=== PATIENT | male | born 1995 | race Caucasian/White ===

== ENCOUNTER 2020-01-15 06:35 | Emergency (ER) | payer BC, MEDICAID ==
[2020-01-15] MEDS ORDERED: Zofran 4 MG/2 ML VIAL IV ONE (07:41)
[2020-01-15] MEDS ORDERED: MORPHINE SULFATE 4 MG INJ IV ONE (07:41)
[2020-01-15] MEDS ORDERED: TYLENOL 325 MG PO ONE (07:41)
--- NOTE | 2020-01-15 07:48 | XRAY ---
Indication: Head/facial injury with falling tree. Epistaxis. Multiple contiguous axial images obtained through the head without contrast. Comparison: None Normal appearing brain parenchyma, ventricles, and bony calvarium. Visualized paranasal sinuses and mastoid air cells are clear. CT facial bones reported separately. Impression: Normal CT head without contrast exam. Comment: Preliminary interpretation was made by [facility]. No critical discrepancy.
[2020-01-15] MEDS ORDERED: Zofran 4 MG/2 ML VIAL ONE (07:51)
[2020-01-15] MEDS ORDERED: MORPHINE SULFATE 4 MG INJ ONE (07:51)
[2020-01-15] MEDS ORDERED: TYLENOL 325 MG ONE (07:51)
--- NOTE | 2020-01-15 07:51 | ERPHSYRPT ---
- History of Present Illness Time Seen by Provider: 01/15/20 07:04 Source: patient Exam Limitations: no limitations Patient Subjective Stated Complaint: "I was hanging a tree stand with my dad when the top ladder fell and hit my face. It smoked me" Triage Nursing Assessment: Pt presented alert et oriented x3 answering questions appropriately. Pt reported that he and his dad were putting up a tree stand when the top ladder section fell and struck his face. Pt denied any loss of consciousness. Pt reported seeing spots at the initial injury without subsequent visual/auditory disturbances. Pt denied any chest pain or shortness of breath. Pt reported excessive bleeding from his not throughout the night. Pt denied any numbness/tingling throughout all extremities. Head atraumatic normocephalic. Pupils 3mm brisk bilateral reaction. TMs clear. Abrasion with deformity noted to the nasal bridge. Packing in place in bilateral nares. Oropharynx with pink/moist tissues without lesions. Laceration noted to left upper lift with chipped left upper incisor. Neck supple non-tender with trachea midline. Symmetrical chest expansion. Lungs clear with adequate airflow. S1 S2 regular rate and rhythm. Peripheral pulses +2 bilateral. Physician History: 24 years old male presented in the ER with chief complaint of nasal and left- sided head injury after a piece of tree stand ladder fell on him while his father was putting it together. It fell from almost 10 feet height. Had no loss of consciousness but reported seeing stars for a few minutes and improved. This happened last evening before dark. There was bleeding initially from the nose but gradually is slowed down and currently not bleeding. Patient report constant throbbing moderate to severe intensity pain in the nose and lateral side of the head. He also has a small hematoma in the right occipitoparietal area. Denies any ear bleeding. Denies any neck pain, numbness tingling or focal weakness. Denies any visual disturbance at present. No loss of cons ciousness. Patient report pain is aggravated with palpation of his nose and is associated with swelling and better with being still. No jaw injury. No injury anywhere else. Up-to-date with tetanus. Timing/Duration: this morning, yesterday Severity: moderate ENT Location: nose, facial Prearrival Treatment: no prearrival treatment Associated Symptoms: facial pain/swelling, headache, epistaxis Allergies/Adverse Reactions: Penicillins Allergy (Intermediate, Verified 01/15/20 06:40) Hives Home Medications: No Home Meds [No Home Meds] 0 06/23/12 [History] Hx Tetanus, Diphtheria Vaccination/Date Given: Yes (2014) Hx Influenza Vaccination/Date Given: Yes Hx Pneumococcal Vaccination/Date Given: No Travel Risk - International Travel Have you traveled outside of the country in past 3 weeks: No - Coronavirus Screening Are you exhibiting any of the following symptoms?: No Close contact with a COVID-19 positive Pt in past 14-21 Days: No - Review of Systems Constitutional: No Symptoms Eyes: No Symptoms Ears, Nose, & Throat: Nose Pain, Nose Congestion, Epistaxis Respiratory: No Symptoms Cardiac: No Symptoms Abdominal/Gastrointestinal: No Symptoms Genitourinary Symptoms: No Symptoms Musculoskeletal: No Symptoms Skin: Skin Lesions Neurological: Headache Psychological: No Symptoms Endocrine: No Symptoms Hematologic/Lymphatic: No Symptoms Immunological/Allergic: No Symptoms - Past Medical History Pertinent Past Medical History: No Neurological History: No Pertinent History ENT History: No Pertinent History Cardiac History: No Pertinent History Respiratory History: No Pertinent History Endocrine Medical History: No Pertinent History Musculoskeletal History: No Pertinent History GI Medical History: No Pertinent History History: No Pertinent History Psycho-Social History: Depression Male Reproductive Disorders: No Pertinent History - Past Surgical History Past Surgical History: No Neuro Surgical History: No Pertinent History Cardiac: No Pertinent History Respiratory: No Pertinent History Gastrointestinal: No Pertinent History Genitourinary: No Pertinent History Musculoskeletal: No Pertinent History Male Surgical History: No Pertinent History - Social History Smoking Status: Never smoker Exposure to second hand smoke: No Drug Use: none Patient Lives Alone: No - Nursing Vital Signs Nursing Vital Signs: Initial Vital Signs Temperature 98.9 F 01/15/20 06:37 Pulse Rate 109 H 01/15/20 06:37 Respiratory Rate 20 01/15/20 06:37 Blood Pressure 143/88 01/15/20 06:37 O2 Sat by Pulse Oximetry 97 01/15/20 06:37 Pain Scale Pain Intensity 10 - Physical Exam General Appearance: no apparent distress, alert, other (Mild swelling and schwab of impact on right parietal area. 2 x 2 cm swelling/hematoma right occipital area. No step deformity.) Eye Exam: bilateral eye: normal inspection, PERRL, EOMI Ear Exam: bilateral ear: auricle normal, canal normal, TM normal Nasal Exam: dried blood (Swelling at bridge of nose diffusely with superficial skin abrasion. Tenderness to palpation, mild deviation to the left. No obvious crepitus. Dried blood in the nares, no active ooze or spurting.), sinus tenderness Throat Exam: normal, pharynx normal Neck Exam: normal inspection, non-tender, supple, full range of motion Cardiovascular/Respiratory Exam: chest non-tender, normal breath sounds, regular rate/rhythm Abdominal Exam: non-tender, soft Neurologic Exam: alert, oriented x 3, cooperative, sustainability officer II-XII nml as tested, normal mood/affect, nml cerebellar function, nml station & gait, sensation nml, No motor deficits, No sensory deficit Skin Exam: normal color SpO2 Interpretation: normal SpO2: 97 O2 Delivery: Room Air - Course Nursing assessment & vital signs reviewed: Yes Ordered Tests: Active Orders 24 hr Category Date Time Status FACIAL BONES WO CONTRAST [CT] Stat Exams 01/15/20 06:44 Taken HEAD WITHOUT CONTRAST [CT] Stat Exams 01/15/20 06:44 Taken Medication Summary Discontinued Medications Generic Name Dose Route Start Last Admin Trade Name [place] PRValentín Reason Stop Dose Admin Acetaminophen 975 mg 01/15/20 07:41 Tylenol 325 Mg PO 01/15/20 07:42 STAT ONE Morphine Sulfate 4 mg 01/15/20 07:41 Morphine Sulfate 4 Mg Inj IV 01/15/20 07:42 STAT ONE Ondansetron HCl 4 mg 01/15/20 07:41 Zofran 4 Mg/2 Ml Vial IV 01/15/20 07:42 STAT ONE - Progress Progress: improved, pain not gone completely Progress Note: 01/15/20 07:53 24 years old is evaluated after a piece of letter fell on his nose and right side of the head last evening. Patient has nonfocal neuro exam. He has obvious swelling of the nose with some deformity towards the left. He is given morphine for symptomatic relief. No active epistaxis but has dried blood. I have obtained CT head and facial bone which did not show any acute intracranial findings but does have nasal bone fracture on the left with some deviation of septum. I would start him on clindamycin and will give ibuprofen for sym ptomatic relief. Recommended applying ice. I do not think patient needs emergent ENT consultation but needs outpatient follow-up with ENT. He is given referral for ENT in [place]. Discussed signs symptoms of worsening needing return to ER which patient seems understanding. Stable for discharge. Counseled pt/family regarding: diagnosis, need for follow-up, rad results - Departure Departure Disposition: Home Clinical Impression: Nasal bone fracture Qualifiers: Encounter type: initial encounter Fracture type: closed Qualified Code(s): S02.2XXA - Fracture of nasal bones, initial encounter for closed fracture Contusion of scalp Qualifiers: Encounter type: initial encounter Qualified Code(s): S00.03XA - Contusion of scalp, initial encounter Condition: Stable Critical Care Time: No Referrals: CRISTINA SEQUEIRA [Primary Care Provider] - Follow Up with PCP/3 days YOVANY SIU [NON-STAFF PHY W/O PRIVILEGES] - (Call Friday morning for appointment and evaluation of nasal fracture.) Instructions: Nose Fracture (DC), Minor Head Injury (DC) Additional Instructions: Take Tylenol/ibuprofen as needed for pain. Apply ice on the nose intermittently. Follow-up with your primary care and ENT specialist for reevaluation of nasal fracture and further management options. Return to ER for any worsening of swelling, nasal bleeding, etc. Prescriptions: Ibuprofen 600 mg PO Q6HPRN PRN 10 Days #20 tablet PRN Reason: Pain Clindamycin HCl 150 mg [Cleocin 150 mg Capsule] 2 cap PO QID #56 capsule
--- NOTE | 2020-01-15 07:52 | XRAY ---
Indication: Head/facial injury with falling tree. Epistaxis. Multiple contiguous axial images obtained through the facial bones. Sagittal and coronal reformatted images obtained. Comparison: None Bridge of the nasal bone and left nasal bone demonstrates minimally depressed fractures with overlying soft tissue swelling. Also nondisplaced nasal septum fracture. Opacification of the nasal passages presumed blood. Incidental nasal septal deviation to the left. No other fracture, suspicious bone lesions, or radiopaque foreign body. Orbits including roof, ramirez, and floors intact. Inferior right maxillary sinus demonstrates minimal mucosal thickening. Remaining paranasal sinuses are clear. Visualized noncontrasted soft tissues are unremarkable. CT head reported separately. Impression: Nasal bone and nasal septum fractures as detailed. Comment: Preliminary interpretation was made by [facility]. No critical discrepancy.
[2020-01-15 07:56] VITALS: O2SAT 97
[2020-01-15] MEDS ORDERED: CLEOCIN 150 MG CAPSULE PO ONE (07:59)
[2020-01-15] MEDS ORDERED: CLEOCIN 150 MG CAPSULE ONE (08:05)
[2020-01-15 08:21] VITALS: BP 137/74; PULSE 93
== END 2020-01-15 08:19 | disposition home or self-care (01) ==
LOC: ED 06:35
DX: S02.2XXA Fracture of nasal bones, initial encounter for closed fracture (principal); S00.03XA Contusion of scalp, initial encounter; W22.8XXA Striking against or struck by other objects, initial encounter; Y93.89 Activity, other specified; Y92.89 Other specified places as the place of occurrence of the external cause
CPT/HCPCS: 36000; 70450; 70486; 96374; 96375; 99284; J2270; J2405; A9270-GY

== ENCOUNTER 2020-01-17 19:43 | Emergency (ER) | payer BC ==
[2020-01-17] MEDS ORDERED: TORAdol 30 mg Injection IM ONE (20:35)
[2020-01-17] MEDS ORDERED: TORAdol 30 mg Injection ONE (20:40)
[2020-01-17 20:49] VITALS: O2SAT 97
--- NOTE | 2020-01-17 21:02 | ERPHSYRPT ---
- History of Present Illness Source: patient Physician History: 24 yo wm s/p tree stand vs face on 01/13 w ER visit on 01/14. Pt had head/face CT'ed w nasal fx. Pt did not get pain meds filled because it was sent to wrong pharmacy. Pain is 10 on scale. He denies focal weakness/new trauma/N/V/visual impairment. Occurred: other (01/14/20) Head Injury Location: frontal (glabella/nose) Method of Injury: direct blow, fell Loss of Consciousness: no loss of consciousness, dazed Associated Symptoms: headaches, No nausea, No vomiting, No abdominal pain, No shortness of breath, No heartburn, No diaphoresis, No cough, No chills, No chest pain, No fever, No loss of appetite, No malaise, No rash, No syncope, No seizure, No weakness Allergies/Adverse Reactions: Penicillins Allergy (Intermediate, Verified 01/15/20 06:40) Hives Hx Tetanus, Diphtheria Vaccination/Date Given: Yes (2010) Hx Influenza Vaccination/Date Given: No Hx Pneumococcal Vaccination/Date Given: No Travel Risk - International Travel Have you traveled outside of the country in past 3 weeks: No - Coronavirus Screening Are you exhibiting any of the following symptoms?: No Close contact with a COVID-19 positive Pt in past 14-21 Days: No - Review of Systems Constitutional: No Symptoms Eyes: No Discharge, No Eye Pain, No Eye Redness, No Itchy, No Photophobia, No Tearing, No Vision Changes, No Double Vision, No Foreign Body Sensation Ears, Nose, & Throat: Nose Pain, Nose Congestion, No Ear Pain, No Ear Discharge, No Hearing Changes, No Nose Discharge, No Sinus Drainage, No Epistaxis, No Mouth Pain, No Mouth Swelling, No Loose Teeth, No Throat Pain, No Throat Swelling Respiratory: No Symptoms Cardiac: No Symptoms Abdominal/Gastrointestinal: No Symptoms Genitourinary Symptoms: No Symptoms Musculoskeletal: No Symptoms Skin: No Symptoms Neurological: No Symptoms, Headache Psychological: No Symptoms Endocrine: No Symptoms Hematologic/Lymphatic: No Symptoms Immunological/Allergic: No Symptoms - Past Medical History Pertinent Past Medical History: No Neurological History: No Pertinent History ENT History: No Pertinent History Cardiac History: No Pertinent History Respiratory History: No Pertinent History Endocrine Medical History: No Pertinent History Musculoskeletal History: No Pertinent History GI Medical History: No Pertinent History History: No Pertinent History Psycho-Social History: No Pertinent History Male Reproductive Disorders: No Pertinent History - Past Surgical History Past Surgical History: No Neuro Surgical History: No Pertinent History Cardiac: No Pertinent History Respiratory: No Pertinent History Gastrointestinal: No Pertinent History Genitourinary: No Pertinent History Musculoskeletal: No Pertinent History Male Surgical History: No Pertinent History - Social History Smoking Status: Never smoker Exposure to second hand smoke: No Drug Use: none Patient Lives Alone: No Significant Family History: no pertinent family hx - Nursing Vital Signs Nursing Vital Signs: Initial Vital Signs Pulse Rate 71 01/17/20 20:10 Respiratory Rate 18 01/17/20 20:10 Blood Pressure 117/76 01/17/20 20:10 O2 Sat by Pulse Oximetry 97 01/17/20 20:10 Pain Scale Pain Intensity 10 - Kayleigh Coma Score Best Eye Response (Darragh): (4) open spontaneously Best Verbal Response (Kayleigh): (5) oriented Best Motor Response (Kayleigh): (6) obeys commands Darragh Total: 15 - Physical Exam General Appearance: no apparent distress Head Injury: tenderness (Racoon eyes/nasal bridge edema and ttp/No otorrhea or rhinorrhea) Eye Exam: bilateral eye: normal inspection (Racoon eyes B), PERRL, EOMI ENT Exam: airway nml, No clear fluid (ears), No clear fluid (nose), No midface instability (Nasal bridge edema and ttp), No decreased hearing Neck Exam: supple (C-spine nttp) Cardiovascular/Respiratory Exam: chest non-tender, normal breath sounds, regular rate/rhythm, heart sounds normal, no respiratory distress Gastrointestinal/Abdominal Exam: soft, non tender, no distention, no ecchymosis Back Exam: normal inspection, normal range of motion, No CVA tenderness, No vertebral tenderness Extremity Exam: non-tender, normal range of motion, normal inspection, no pedal edema, pelvis stable Mental Status Exam: alert, oriented x 3, cooperative, No agitated, No uncooperative, No depressed affect animal anatomist Exam: normal hearing, normal speech, PERRL, abnormal eye position, tongue midline, No abnormal gag reflex, No abnormal pupil position, No abnormal speech, No facial asymmetry, No facial droop, No tongue deviation to L Coordination/Gait Exam: normal finger to nose, normal gait, negative Romberg's sign Motor/Sensory Exam: no motor deficit, no sensory deficit, no pronator drift, negative Babinski's sign, CN II-XII intact, No pronator drift (R), No pronator drift (L), No sensory deficit, No weak motor strength RUE, No weak motor strength LUE, No weak motor strength RLE, No weak motor strength LLE DTR Exam: bicep (R): 2+, bicep (L): 2+, knee (R): 2+, knee (L): 2+ Skin Exam: warm, dry, No rash Lymphatic Exam: No adenopathy SpO2 Interpretation: normal SpO2: 97 O2 Delivery: Room Air - Course Nursing assessment & vital signs reviewed: Yes Ordered Tests: Medication Summary Discontinued Medications Generic Name Dose Route Start Last Admin Trade Name Freq PRN Reason Stop Dose Admin Ketorolac Tromethamine 60 mg 01/17/20 20:35 01/17/20 20:43 Toradol 30 Mg Injection IM 01/17/20 20:36 60 mg STAT ONE Administration Ketorolac Tromethamine Confirm 01/17/20 20:40 Toradol 30 Mg Injection Administered 01/17/20 20:41 Dose 60 mg .ROUTE .STK-MED ONE - Progress Progress: improved Progress Note: 01/17/20 21:04 CT head/face ordered which pt later refused. Risks explained to pt, including missed facial fx's/delayed intracranial bleed 60mg IM toradol Counseled pt/family regarding: need for follow-up - Departure Departure Disposition: Home Clinical Impression: Nasal bone fracture Condition: Stable Critical Care Time: No Referrals: CRISTINA SEQUEIRA [Primary Care Provider] - Instructions: Nose Fracture (DC), Facial Fracture (DC) Additional Instructions: Toradol as needed for pain Follow up with family MD or ENT surgeon about broken nose Prescriptions: Ketorolac Tromethamine [Toradol] 10 mg PO TID PRN #10 tablet PRN Reason: Pain
[2020-01-17 21:24] VITALS: BP 137/67; PULSE 66
== END 2020-01-17 21:20 | disposition home or self-care (01) ==
LOC: ED 19:43
DX: S02.2XXA Fracture of nasal bones, initial encounter for closed fracture (principal); S06.9X0A Unspecified intracranial injury without loss of consciousness, initial encounter; W22.09XA Striking against other stationary object, initial encounter; Y93.9 Activity, unspecified; Y92.9 Unspecified place or not applicable
CPT/HCPCS: 96372; 99283; J1885